=== PATIENT | male | born 1960 | race African-American/Black ===

== ENCOUNTER 2016-09-14 17:35 | Emergency (ER) | payer OTHER ==
[~2016-09-14] VITALS: Ht 182.9 cm; Wt 149.3 kg
[~2016-09-14 17:35] MED LIST: LORTAB 5-500 T1 EACH PO; blood pressure
[2016-09-14 18:08] LABS: ADD MIUA? YES; BILIRUBIN NEGATIVE; BLOOD NEGATIVE; COLOR YELLOW ((YELLOW)); GLUCOSE (STRIP) NEGATIVE; KETONES NEGATIVE; LEUKOCYTES MODERATE; NITRITE NEGATIVE; PROTEIN (STRIP) NEGATIVE; SPECIFIC GRAVITY 1.023 (1.000-1.030); UROBILINOGEN 0.2 MG/DL (0.2-1.0)
[2016-09-14 18:29] LABS: BACTERIA NONE SEEN /HPF; EPITHELIAL CELLS RARE /HPF; MUCUS TRACE /LPF; RED BLOOD CELLS 0-5 /HPF (0-5); UCUL ADDED? NO; WHITE BLOOD CELLS 20-30 /HPF (0-5)
[2016-09-14 18:51] LABS: HEMATOCRIT 38.7 % (38.0-50.0); MCH 27.8 PG (29.0-34.0); MCHC 32.3 G/DL (30.0-36.0); MEAN PLAT.VOLUME 10.1 uM^3 (9.0-12.4); PLATELET COUNT 264 K/uL (156-360); RBC DIS.WIDTH-CV 13.7 % (11.8-14.6); RBC DIS.WIDTH-SD 43.2 % (39-53); WHITE BLOOD COUNT 5.8 K/uL (4.1-10.2)
[2016-09-14 18:58] LABS: CHLORIDE 107 mEq/L (99-109); POTASSIUM 4.1 mEq/L (3.7-5.4); SODIUM 140 mEq/L (136-147)
[2016-09-14 19:01] LABS: GLUCOSE 97 mg/dL (70-99)
[2016-09-14 19:02] LABS: ANION GAP 10 MEQ/L (2-14)
[2016-09-14 19:03] LABS: TOTAL BILIRUBIN 0.2 mg/dL (0.0-1.0)
[2016-09-14 19:04] LABS: ALKALINE PHOSPHATASE 71 IU/L (3-129); GFR ESTIMATE (CALCULATED) 58 mL/min/
[2016-09-14 19:05] LABS: UREA NITROGEN (BUN) 21 mg/dL (9-23)
[2016-09-14] MEDS ORDERED: KEFLEX500 MG PO (19:26)
[2016-09-14 19:42] VITALS: BP 165/82
[2016-09-14 20:01] LABS: C-REACTIVE PROTEIN 6.6 MG/L (0-10); SAMPLE HEMOLYSIS CHECK 0; SAMPLE ICTERIC CHECK 0; SAMPLE LIPEMIA CHECK 0
== END 2016-09-14 19:44 | disposition home or self-care (01) ==
LOC: EME 17:35
PROVIDERS: Physician Assistant
DX: L03.116 Cellulitis of left lower limb (principal); M79.89 Other specified soft tissue disorders; I10 Essential (primary) hypertension; Z87.891 Personal history of nicotine dependence
CPT/HCPCS: 80053; 81003; 85027; 86140; 93971; 99281; 99284

== ENCOUNTER 2016-09-30 13:56 | Emergency (ER) | payer OTHER ==
[~2016-09-30] VITALS: Ht 182.9 cm; Wt 147.8 kg
[~2016-09-30 13:56] MED LIST changes: +KEFLEX500 MG PO
[2016-09-30] MEDS ORDERED: CLEOCIN300 MG PO (15:10)
[2016-09-30] MEDS ORDERED: UNABLE TO OBTAIN (15:26)
[2016-09-30 15:27] VITALS: BP 130/66
== END 2016-09-30 15:29 | disposition home or self-care (01) ==
LOC: EME 13:56
DX: L03.116 Cellulitis of left lower limb (principal); I10 Essential (primary) hypertension; Z87.891 Personal history of nicotine dependence
CPT/HCPCS: 99281; 99284

== ENCOUNTER 2017-04-15 12:12 | Emergency (ER) | payer OTHER ==
[~2017-04-15] VITALS: Ht 182.9 cm; Wt 148.6 kg
[~2017-04-15 12:12] MED LIST changes: +CLEOCIN300 MG PO; +UNABLE TO OBTAIN
[2017-04-15 12:25] VITALS: BP 117/67
[2017-04-15] MEDS ORDERED: FLEXERIL10 MG PO (15:23)
[2017-04-15] MEDS ORDERED: TESSALON200 MG PO (15:23)
[2017-04-15] MEDS ORDERED: ZOFRAN ODT4 MG PO (15:23)
== END 2017-04-15 15:35 | disposition home or self-care (01) ==
LOC: EME 12:12
DX: J10.1 Influenza due to other identified influenza virus with other respiratory manifestations (principal)
CPT/HCPCS: 87502; 99281; 99283

== ENCOUNTER 2017-04-16 13:46 | Emergency (ER) | payer SELFPAY ==
[~2017-04-16] VITALS: Ht 182.9 cm; Wt 145.7 kg
[~2017-04-16 13:46] MED LIST changes: +FLEXERIL10 MG PO; +TESSALON200 MG PO; +ZOFRAN ODT4 MG PO
[2017-04-16 17:40] LABS: BASOPHIL (%) 0.3 % (0-1); EOSINOPHIL (%) 0.1 % (0-5); HEMOGLOBIN 12.9 G/DL (12.5-16.6); IMMATURE GRANULOCYTE (%) 0.3 % (0.0-0.7); LYMPHOCYTE (%) 9.2 % (15-42); LYMPHOCYTE COUNT 0.7 K/uL (1.0-2.8); MCH 28.1 PG (29.0-34.0); MCHC 33.1 G/DL (30.0-36.0); MONOCYTE (%) 9.2 % (3-12); MONOCYTE COUNT 0.7 K/uL (0-0.8); NEUTROPHIL (%) 80.9 % (45-76); NEUTROPHIL COUNT 5.7 K/uL (1.8-6.4); PLATELET COUNT 253 K/uL (156-360); RBC DIS.WIDTH-CV 13.4 % (11.8-14.6); RBC DIS.WIDTH-SD 41.8 % (39-53); RED BLOOD COUNT 4.59 M/uL (4.00-5.50); WHITE BLOOD COUNT 7.1 K/uL (4.1-10.2)
[2017-04-16 17:49] LABS: ALBUMIN 3.9 g/dL (3.2-4.8); CHLORIDE 102 mEq/L (99-109)
[2017-04-16 17:50] LABS: POTASSIUM 3.7 mEq/L (3.7-5.4); SODIUM 136 mEq/L (136-147)
[2017-04-16 17:52] LABS: GLUCOSE 118 mg/dL (70-99); TOTAL PROTEIN 8.3 g/dL (6.4-8.3)
[2017-04-16 17:54] LABS: TOTAL BILIRUBIN 0.4 mg/dL (0.0-1.0)
[2017-04-16 17:55] LABS: ALKALINE PHOSPHATASE 60 IU/L (3-129)
[2017-04-16 17:56] LABS: CREATININE 1.9 mg/dL (0.6-1.3); GFR ESTIMATE (CALCULATED) 47 mL/min/ (58.99-99999)
[2017-04-16 17:57] LABS: AST (GOT) 34 IU/L (2-34); UREA NITROGEN (BUN) 22 mg/dL (9-23)
[2017-04-16 17:58] LABS: ALT (GPT) 25 IU/L (3-49)
[2017-04-16 19:06] VITALS: BP 120/57
== END 2017-04-16 19:32 | disposition home or self-care (01) ==
LOC: EME 13:46
PROVIDERS: Physician Assistant
DX: J10.1 Influenza due to other identified influenza virus with other respiratory manifestations (principal); N28.9 Disorder of kidney and ureter, unspecified; G89.29 Other chronic pain; Z87.891 Personal history of nicotine dependence
CPT/HCPCS: 71046; 80053; 83605; 85025; 99281; 99285; J7030

== ENCOUNTER 2017-06-11 06:16 | Emergency (ER) | payer SELFPAY ==
[~2017-06-11] VITALS: Ht 180.3 cm; Wt 148.2 kg
[2017-06-11 07:07] LABS: BASOPHIL (%) 0.8 % (0-1); EOSINOPHIL (%) 5.9 % (0-5); EOSINOPHIL COUNT 0.2 K/uL (0-0.3); HEMOGLOBIN 12.1 G/DL (12.5-16.6); IMMATURE GRANULOCYTE (%) 0.3 % (0.0-0.7); LYMPHOCYTE (%) 37.3 % (15-42); LYMPHOCYTE COUNT 1.4 K/uL (1.0-2.8); MCH 27.9 PG (29.0-34.0); MCHC 32.7 G/DL (30.0-36.0); MCV 85.5 FL (86-99); MONOCYTE (%) 9.6 % (3-12); MONOCYTE COUNT 0.4 K/uL (0-0.8); NEUTROPHIL (%) 46.1 % (45-76); NEUTROPHIL COUNT 1.7 K/uL (1.8-6.4); PLATELET COUNT 248 K/uL (156-360); RBC DIS.WIDTH-CV 14.6 % (11.8-14.6); RBC DIS.WIDTH-SD 45.7 % (39-53); RED BLOOD COUNT 4.33 M/uL (4.00-5.50); WHITE BLOOD COUNT 3.8 K/uL (4.1-10.2)
[2017-06-11 07:32] LABS: CHLORIDE 105 MEQ/L (99-109); CREATININE 1.1 MG/DL (0.6-1.3); GFR ESTIMATE (CALCULATED) > 59 mL/min/ (58.99-99999); GLUCOSE 116 mg/dL (70-99); POTASSIUM 3.7 MEQ/L (3.7-5.4); SODIUM 138 MEQ/L (136-147); UREA NITROGEN (BUN) 13 mg/dL (9-23)
[2017-06-11 07:34] LABS: TROP-I INTERPRETATION NEGATIVE; TROPONIN-I 0.01 ng/mL (0.0-0.30)
[2017-06-11 09:53] LABS: TROP-I INTERPRETATION NEGATIVE; TROPONIN-I < 0.01 ng/mL (0.0-0.30)
[2017-06-11 10:53] VITALS: BP 124/81
== END 2017-06-11 10:56 | disposition home or self-care (01) ==
LOC: EME 06:16
PROVIDERS: Emergency Medicine
DX: R07.89 Other chest pain (principal); I10 Essential (primary) hypertension; G89.29 Other chronic pain; Z79.891 Long term (current) use of opiate analgesic; E78.5 Hyperlipidemia, unspecified; Z87.891 Personal history of nicotine dependence
CPT/HCPCS: 71045; 80048; 84484; 85025; 93005; 99281; 99285